=== PATIENT | female | born 1985 | race Caucasian/White ===

== ENCOUNTER 2018-09-11 06:00 | Inpatient (IN) | payer BC ==
[2018-09-11] MEDS ORDERED: CARBOPROST TROMETHAMINE 250 MCG/ML 1 ML AMP IM PRN (06:16)
[2018-09-11] MEDS ORDERED: LIDOCAINE 0.5% (PF) 5 MG/ML (50 ML SDV) SQ PRN (06:16)
[2018-09-11] MEDS ORDERED: TERBUTALINE 1 MG/ML VIAL SQ PRN (06:16)
[2018-09-11] MEDS ORDERED: OXYTOCIN 10 UNIT/ML 1 ML VIAL IM PRN (06:16)
[2018-09-11] MEDS ORDERED: METHYLERGONOVINE 0.2 MG/ML 1 ML AMP IM PRN (06:16)
[2018-09-11 06:23] VITALS: BMI 36.8
[2018-09-11] MEDS ORDERED: OXYTOCIN 20 UNITS/1000 ML NS 1,000 ML IV SCH (06:30)
[2018-09-11] MEDS ORDERED: LACTATED RINGERS 1,000 ML IV SCH (06:30)
[2018-09-11 06:37] LABS: Basophils % (A) 0 %; Eosinophils # (A) 0.2 k/uL (0-0.7); Eosinophils % (A) 2 %; HCT 41.5 % (34.0-46.0); HGB 13.9 gm/dL (11.4-16.0); Lymphocytes # (A) 2.9 k/uL (1.0-4.8); Lymphocytes % (A) 24 %; MCH 29.5 pg (25.0-35.0); MCHC 33.4 g/dL (31.0-37.0); MCV 88.4 fL (80.0-100.0); Mean Platelet Volume 7.1; Monocytes # (A) 0.7 k/uL (0-1.0); Monocytes % (A) 6 %; Neutrophils # (A) 8.3 k/uL (1.3-7.7); Neutrophils % (A) 67 %; Platelet Count 225 k/uL (150-450); RBC 4.69 m/uL (3.80-5.40); RDW 13.3 % (11.5-15.5); WBC 12.4 k/uL (3.8-10.6)
[2018-09-11] MEDS ORDERED: BENZOCAINE/MENTHOL SPRAY 1 GM/SPRAY AEROSOL TOPICAL PRN (10:38)
[2018-09-11] MEDS ORDERED: WITCH HAZEL 1 EACH MED..PAD TOPICAL PRN (10:38)
[2018-09-11] MEDS ORDERED: diphenhydrAMINE 50 MG CAP PO PRN (11:03)
[2018-09-11] MEDS ORDERED: LANOLIN CREAM 5 GM TUBE TOPICAL PRN (11:03)
[2018-09-11] MEDS ORDERED: diphenhydrAMINE 25 MG CAP PO PRN (11:03)
[2018-09-11] MEDS ORDERED: ZOLPIDEM 5 MG TAB PO PRN (11:03)
[2018-09-11] MEDS ORDERED: ACETAMINOPHEN TAB 325 MG TAB PO PRN (11:03)
[2018-09-11] MEDS ORDERED: SIMETHICONE 80 MG CHEWABLE PO PRN (11:03)
--- NOTE | 2018-09-11 12:51 | P.HPOB ---
History of Present Illness H&P Date: 09/11/18 Chief Complaint: Induction of Labor 33 year old presents at 39 weeks 2 days for induction of labor. Her cervix is 7/90/0. She is carmen irregularly. heart tones were 130-135 with moderate variability and reactive. Review of Systems All systems: negative Constitutional: Denies chills, Denies fever Eyes: denies blurred vision, denies pain Ears, nose, mouth and throat: Denies headache, Denies sore throat Cardiovascular: Denies chest pain, Denies shortness of breath Respiratory: Denies cough Gastrointestinal: Denies abdominal pain, Denies diarrhea, Denies nausea, Denies vomiting Genitourinary: Denies dysuria, Denies hematuria Musculoskeletal: Denies myalgias Integumentary: Denies pruritus, Denies rash Neurological: Denies numbness, Denies weakness Psychiatric: Denies anxiety, Denies depression Endocrine: Denies fatigue, Denies weight change Past Medical History Past Medical History: No Reported History Additional Past Medical History / Comment(s): OB history: First was a vaginal delivery, she's had one miscarriage and this is her third . Her blood type is B+, and is negative, rubella immune, hep is B-, GBS negative. History of Any Multi-Drug Resistant Organisms: None Reported Additional Past Surgical History / Comment(s): [place] Tooth Extraction Past Anesthesia/Blood Transfusion Reactions: No Reported Reaction Past Psychological History: No Psychological Hx Reported Smoking Status: Never smoker Past Alcohol Use History: None Reported Past Drug Use History: None Reported - Past Family History Mother Family Medical History: Thyroid Disorder Sister(s) Family Medical History: Asthma Medications and Allergies Home Medications Medication Instructions Recorded Confirmed Type Pnv 11/Iron Fum/Folic Acid/Om3 1 each PO DAILY 09/11/18 09/11/18 History [Virt-Raj Dha Softgel] Allergies Allergy/AdvReac Type Severity Reaction Status Date / Time Penicillins Allergy Rash/Hives Verified 09/11/18 06:16 Exam Osteopathic Statement: *. No significant issues noted on an osteopathic structural exam other than those noted in the History and Physical/Consult. Vital Signs Temp Pulse Pulse Resp BP 09/11/18 12:25 78 16 132/79 09/11/18 11:55 69 16 139/83 09/11/18 11:25 75 16 152/98 09/11/18 11:10 75 16 145/92 09/11/18 10:55 70 16 127/82 09/11/18 10:40 75 16 128/84 09/11/18 10:25 97.2 F L 78 16 143/88 09/11/18 06:18 97.4 F L 85 16 137/89 Intake and Output 09/10/18 09/11/18 09/11/18 22:59 06:59 14:59 Other: Weight 116.573 kg Heart: Regular rate and rhythm Lungs: Clear to auscultation bilaterally Abdomen: Soft, nontender Extremities: Negative Homans sign Results Result Diagrams: 09/11/18 06:26 Abnormal Lab Results - Last 24 Hours (Table) 09/11/18 Range/Units 06:26 WBC 12.4 H (3.8-10.6) k/uL Neutrophils # 8.3 H (1.3-7.7) k/uL Assessment and Plan (1) Normal labor Current Visit: Yes Status: Acute Code(s): O80 - ENCOUNTER FOR FULL-TERM UNCOMPLICATED DELIVERY; Z37.9 - OUTCOME OF DELIVERY, UNSPECIFIED SNOMED Code(s ): 07656220 Plan: 1. Admit to family place 2. Induction of labor amniotomy and Pitocin 3. Anticipate normal vaginal delivery
--- NOTE | 2018-09-11 12:53 | P.PROBDLV ---
Vaginal Delivery Note - . Vaginal Delivery Note: 33-year-old presents at 39 weeks and 2 days for induction of labor. Her cervix was 7 cm dilated, 90% effaced, 0 station. She is carmen irregularly. heart tones 130-145 with moderate variability and reactive. Pitocin was started. Amniotomy was performed at 8:18 AM, clear fluid noted. Her cervix was completely dilated 954 a.m. She pushed, and delivered a viable male infant over midline episiotomy under epidural anesthesia. The heart tones had gone down to 80s to 90s at this point and episiotomy was found to be necessary. Head delivered OA, nuchal cord 1 easily reduced, the more anterior shoulder was the right shoulder delivered with gentle downward guidance, followed by posterior shoulder and rest of body. Nose and mouth bulb suctioned , cord clamped and cut, infant placed on mother's abdomen. Apgars 8, 9, weight 8 lbs. 11 oz. Placenta delivered spontaneously, intact with three-vessel cord at 10:16 AM. Vagina, cervix, and perineum were inspected. Second-degree midline episiotomy was repaired with 2-0 and 3-0 Vicryl. Estimated blood loss 200 mL. Mother and baby in stable condition.
[2018-09-11] MEDS: IBUPROFEN 600 MG TAB PO PRN (15:04)
[2018-09-11] MEDS: SENNOSIDES-DOCUSATE SODIUM 1 EACH TAB PO SCH (19:52)
[2018-09-12] MEDS: IBUPROFEN 600 MG TAB PO PRN ×2 (00:03→08:51)
--- NOTE | 2018-09-12 08:25 | P.DS ---
Providers Date of admission: 09/11/18 06:00 Expected date of discharge: 09/12/18 Attending physician: Yarely Esquivel Primary care physician: Stated None - Discharge Diagnosis(es) (1) Normal labor Current Visit: Yes Status: Resolved (2) Normal vaginal delivery Current Visit: Yes Status: Acute Hospital Course: Patient presented for induction of labor. She underwent a normal vaginal delivery and had an uncomplicated pp course. She will be discharged home PPD #1 in stable condition to follow up with me in 6 weeks. Plan - Discharge Summary New Discharge Prescriptions: New Ibuprofen [Motrin] 600 mg PO Q6HR PRN #30 tab PRN Reason: Mild Pain Or Fever >= 100.5 No Action Pnv 11/Iron Fum/Folic Acid/Om3 [Virt-Raj Dha Softgel] 1 each PO DAILY Discharge Medication List Pnv 11/Iron Fum/Folic Acid/Om3 [Virt-Raj Dha Softgel] 1 each PO DAILY 09/11/18 [History] Ibuprofen [Motrin] 600 mg PO Q6HR PRN #30 tab 09/12/18 [Rx] Follow up Appointment(s)/Referral(s): Yarely Esquivel DO [Doctor of Osteopathic Medicine] - 6 Weeks Discharge Disposition: HOME SELF-CARE
[2018-09-12] MEDS: SENNOSIDES-DOCUSATE SODIUM 1 EACH TAB PO SCH (08:50)
[2018-09-12 09:03] VITALS: BP 134/84; PULSE 83; RESP 20; TEMP 98.4
== END 2018-09-12 14:50 | disposition home or self-care (01) | DRG 807 ==
LOC: 4FBP 06:00
PROVIDERS: ADMIT Obstetrics & Gynecology; ATTEND Obstetrics & Gynecology
PROC: 10E0XZZ Delivery of Products of Conception, External Approach (ICD-10-PCS; principal; 2018-09-11)
PROC: 0W8NXZZ Division of Female Perineum, External Approach (ICD-10-PCS; 2018-09-11)
PROC: 10907ZC Drainage of Amniotic Fluid, Therapeutic from Products of Conception, Via Natural or Artificial Opening (ICD-10-PCS; 2018-09-11)
PROC: 3E033VJ Introduction of Other Hormone into Peripheral Vein, Percutaneous Approach (ICD-10-PCS; 2018-09-11)
DX: O69.81X0 Labor and delivery complicated by cord around neck, without compression, not applicable or unspecified (principal); Z37.0 Single live birth; Z3A.39 39 weeks gestation of pregnancy; Z79.899 Other long term (current) drug therapy; Z88.0 Allergy status to penicillin; Z82.5 Family history of asthma and other chronic lower respiratory diseases; Z83.49 Family history of other endocrine, nutritional and metabolic diseases
CPT/HCPCS: 85025; 86850; 86900; 86901

== ENCOUNTER → 2021-01-07 | Outpatient (CLI) | payer BC ==
--- NOTE | 2021-01-07 10:57 | US ---
EXAMINATION TYPE: US abdomen complete DATE OF EXAM: 01/07/2021 COMPARISON: NONE CLINICAL HISTORY: 35-year-old female R10.13 EPIGASTRIC PAIN. TECHNIQUE: Multiple sonographic images of the abdomen are obtained. FINDINGS: EXAM MEASUREMENTS: Liver Length: 14.4 cm Gallbladder Wall: .2 cm CBD: .2 cm Spleen: 14.2 cm Right Kidney: 11.1 x 3.1 x 5.0 cm Left Kidney: 10.5 x 4.4 x 4.0 cm Pancreas: Most of the pancreas is visualized and shows no gross abnormality. Liver: Hypoechoic area seen 2.3 x 1.7 x 2.6 cm possible focal sparing. There is background diffuse increased echogenicity of the hepatic parenchyma. Gallbladder: No stones seen Evidence for sonographic Condon's sign: No CBD: wnl Spleen: Mildly enlarged Right Kidney: wnl Left Kidney: wnl Upper IVC: wnl Abd Aorta: wnl IMPRESSION: 1. Moderate hepatic steatosis. A 2.6 cm hypoechoic area at the portahepatis likely represents focal f atty sparing. 3 month follow-up ultrasound to reassess. 2. Mild splenomegaly at 14.2 cm. 3. No gallstones or biliary ductal dilatation.
== END | disposition home or self-care (01) ==
LOC: RADUSWWP 07:39
PROVIDERS: ATTEND Family Medicine
DX: K76.0 Fatty (change of) liver, not elsewhere classified (principal); R16.1 Splenomegaly, not elsewhere classified
CPT/HCPCS: 76700

== ENCOUNTER 2021-01-26 07:40 | Day surgery (SDC) | payer BC ==
[2021-01-22 13:19] VITALS: BMI 33.1
[2021-01-26 08:09] VITALS: RESP 16; TEMP 98.2
[2021-01-26] MEDS ORDERED: LIDOCAINE 1% (10MG/ML) FOR IV START INTRADERMA ONE (08:09)
[2021-01-26] MEDS ORDERED: LACTATED RINGERS 1,000 ML IV ONE (08:11)
[2021-01-26] MEDS ORDERED: LIDOCAINE 1% INJ 10MG/ML (20 ML MDV) ONE (08:20)
[2021-01-26] MEDS ORDERED: PROPOFOL 10 MG/ML 20 ML VIAL IV ONE (08:20)
--- NOTE | 2021-01-26 08:39 | P.PCN ---
Date of Procedure: 01/26/21 Description of Procedure: BRIEF HISTORY: Patient is a 35-year-old female presenting for outpatient esophagogastroduodenoscopy for evaluation of symptoms of epigastric abdominal pain. She reports one year of symptoms of epigastric abdominal pain. Previously evaluated with ultrasound and H. pylori testing. She also reports symptoms of decreased oral intake and metallic taste in her mouth. PROCEDURE PERFORMED: Esophagogastroduodenoscopy with biopsy. PREOPERATIVE DIAGNOSIS: epigastric abdominal pain, suspected GERD. ESTIMATED BLOOD LOSS: Minimal. IV sedation per anesthesia. PROCEDURE: After informed consent was obtained, the patient was brought into the endoscopy unit. IV sedation was administered by Anesthesia under continuous monitoring. Initially the Olympus GIF-190 video endoscope was inserted into the mouth. Esophagus intubated without any difficulty. It was gradually advanced into the stomach and duodenum and carefully examined. The bulb and the second part of the duodenum appeared normal, with biopsies taken. The scope at this time was withdrawn to the stomach, adequately insufflated with air, and upon careful examination, mucosa of the antrum, body, cardia and the fundus appeared normal, except for some mild punctate erythema in the antrum and body suggestive of mild gastritis with biopsies taken. The scope was then withdrawn into the esophagus. The GE junction was located at 39 cm from the incisorsand biopsied. The esophagus appeared normal. There were no erosions or ulcerations seen and the patient tolerated the procedure well. IMPRESSION: 1. Mild gastritis. 2. Biopsies of the duodenum, antrum body and GE junction. RECOMMENDATIONS: The findings of this examination were discussed with the patient and her family. Okay to resume diet. Okay to resume medications. Await pathology from biopsies. Extensive discussion with the patient, symptoms may be related to uncontrolled reflux and recommendation is for daily OTC omeprazole 20 mg for 6-8 weeks for empiric treatment.
[2021-01-26 09:07] VITALS: BP 124/79; PULSE 69
== END 2021-01-26 09:13 | disposition home or self-care (01) ==
LOC: ORWHC2ENDO 07:40
PROVIDERS: ATTEND Internal Medicine
DX: K29.50 Unspecified chronic gastritis without bleeding (principal); K21.9 Gastro-esophageal reflux disease without esophagitis; J45.990 Exercise induced bronchospasm; Z98.890 Other specified postprocedural states; Z88.0 Allergy status to penicillin
CPT/HCPCS: 81025; 43239; J2001; J2704; 88305; 88342

== ENCOUNTER → 2021-05-15 | Outpatient (CLI) | payer BC ==
--- NOTE | 2021-05-15 09:31 | US ---
EXAMINATION TYPE: US abdomen limited DATE OF EXAM: 05/15/2021 COMPARISON: NONE CLINICAL HISTORY: R932 Abnormal findings on dx imaging of liver. Intermittent abdomen pain x couple m onths EXAM MEASUREMENTS: Liver Length: 14.3 cm Gallbladder Wall: 0.2 cm CBD: 0.7 cm Right Kidney: 10.8 x 4.3 x 5.6 cm Pancreas: wnl Liver: increased echogenicity, 2.0 x 1.3 x 2.5cm hypoechoic area, possible focal sparing, unchanged Gallbladder: wnl Evidence for sonographic Condon's sign: no CBD: dilated Right Kidney: fullness of renal pelvis IMPRESSION: The liver is slightly echogenic with a hypoechoic portion in the gallbladder fossa. This may represen t hepatic steatosis with focal fatty sparing versus hepatic lesion. Please correlate clinically. MRI abdomen could be obtained if clinically warranted.
== END | disposition home or self-care (01) ==
LOC: RADUSWWP 07:58
PROVIDERS: ATTEND Family Medicine
DX: R93.2 Abnormal findings on diagnostic imaging of liver and biliary tract (principal); R10.9 Unspecified abdominal pain
CPT/HCPCS: 76705

== ENCOUNTER → 2021-12-22 | Outpatient (CLI) | payer BC ==
--- NOTE | 2021-12-23 17:17 | US ---
EXAMINATION TYPE: US pelvic complete DATE OF EXAM: 12/22/2021 COMPARISON: NONE CLINICAL HISTORY: R10.2 Pelvic/perineal pain. pelvic pain. irregular menses TECHNIQUE: Transabdominal (TA). Date of LMP: 12/13/21 EXAM MEASUREMENTS: Uterus: 8.1 x 3.7 x 4.7 cm Endometrial Stripe: 0.4 cm Right Ovary: 3.5 x 2.0 x 2.0 cm Left Ovary: 2.5 x 1.6 x 1.8 cm 1. Uterus: Anteverted calcification = 0.4cm this is echogenic and may have some posterior shadowin g. 2. Endometrium: wnl 3. Right Ovary: follicles noted 4. Left Ovary: follicles noted 5. Bilateral Adnexa: wnl 6. Posterior cul-de-sac: wnl IMPRESSION: 1. Echogenic foci within the endometrial canal may be calcification. Follow-up is recommended.
== END | disposition home or self-care (01) ==
LOC: RADUSWWP 15:35
PROVIDERS: ATTEND Family Medicine
DX: R10.2 Pelvic and perineal pain (principal)
CPT/HCPCS: 76856

== ENCOUNTER → 2023-12-26 | Outpatient (CLI) | payer BC ==
--- NOTE | 2023-12-26 11:33 | US ---
EXAMINATION TYPE: US venous doppler duplex LE RT DATE OF EXAM: 12/26/2023 10:59 AM COMPARISON: NONE CLINICAL INDICATION: Female, 38 years old with history of R22.41 LOCALIZED SWELLING, MASS AND LUMP, R IGHT LO; Pt states swelling to right foot and ankle SIDE PERFORMED: Right TECHNIQUE: The lower extremity deep venous system is examined utilizing real time linear array sonog eris with graded compression, doppler sonography and color-flow sonography. VESSELS IMAGED: Common Femoral Vein Deep Femoral Vein Greater Saphenous Vein * Femoral Vein Popliteal Vein Small Saphenous Vein * Proximal Calf Veins Posterior tibial veins (* superficial vessels) Right Leg: Negative for DVT Results called to Leida at Dr's office at time of exam IMPRESSION: No evidence for DVT within the right lower extremity.
== END | disposition home or self-care (01) ==
LOC: RADUSWWP 10:36
PROVIDERS: ATTEND Family Medicine
DX: M79.661 Pain in right lower leg (principal); R22.41 Localized swelling, mass and lump, right lower limb

== ENCOUNTER → 2024-02-27 | Outpatient (CLI) | payer BC ==
--- NOTE | 2024-02-27 11:48 | XR ---
EXAMINATION TYPE: XR chest 2V DATE OF EXAM: 02/27/2024 COMPARISON: None INDICATION: Chest tightness cough TECHNIQUE: Frontal and lateral views of the chest are obtained. FINDINGS: The heart size is normal. The pulmonary vasculature is normal. There is a consolidation in the lower lung field. This appears to be anterior to the major fissure on the lateral projection. No silhouetting the heart border is evident. IMPRESSION: 1. Right lung field infiltrate. Correlate for pneumonia. Follow-up can be performed.
== END | disposition home or self-care (01) ==
LOC: RADXRYALE 11:13
PROVIDERS: ATTEND Physician Assistant Medical
DX: R91.8 Other nonspecific abnormal finding of lung field (principal); J18.0 Bronchopneumonia, unspecified organism; R07.89 Other chest pain; R05.9 Cough, unspecified
CPT/HCPCS: 71046

== ENCOUNTER → 2024-08-07 | Outpatient (CLI) | payer BC ==
--- NOTE | 2024-08-07 11:43 | XR ---
EXAMINATION TYPE: XR abdomen 2V DATE OF EXAM: 08/07/2024 COMPARISON: NONE HISTORY: Abdominal pain TECHNIQUE: Single upright image of the abdomen and pelvis is obtained FINDINGS: Small bowel demonstrates no evidence for dilatation or air fluid levels. Gas and fecal material is seen in non-distended colon. No convincing evidence for pneumoperitoneum. No unusual calcifications. IUD is present within the pelvis. The lung bases are clear. The osseous structures are intact. IMPRESSION: Overall nonobstructive bowel gas pattern. [facility], , 08/07/2024 11:41 AM
== END | disposition home or self-care (01) ==
LOC: RADXRYALE 11:23
PROVIDERS: ATTEND Physician Assistant Medical
DX: R10.9 Unspecified abdominal pain (principal)
CPT/HCPCS: 74019

== ENCOUNTER → 2024-08-15 | Outpatient (CLI) | payer BC ==
--- NOTE | 2024-08-15 16:07 | CT ---
EXAMINATION TYPE: CT abdomen pelvis w con CT DLP: 1441 mGycm, Automated exposure control for dose reduction was used. DATE OF EXAM: 08/15/2024 2:50 PM COMPARISON: Abdominal radiograph 08/07/2024, abdominal ultrasound 05/15/2021, pelvic ultrasound 12/22/19. CLINICAL INDICATION:Female, 39 years old with history of R10.84 GENERALIZED ABDOMINAL PAIN; Nausea, b loating and tenderness TECHNIQUE: Standard CT of the abdomen and pelvis following the administration of 100 cc of Isovue 3 00 IV contrast material and oral contrast. Coronal and sagittal reformats were performed. FINDINGS: LOWER CHEST: Unremarkable ABDOMEN LIVER: Unremarkable GALLBLADDER AND BILE DUCTS: Contracted gallbladder. No biliary duct dilatation. PANCREAS: Unremarkable. SPLEEN: There are hypodense focus within the periphery which is too small to characterize but likely represents a cyst or hemangioma. ADRENAL GLANDS: Unremarkable. KIDNEYS AND URETERS: No evidence of hydronephrosis or renal calculus. The kidneys enhance symmetrical ly. Retroaortic left renal vein. Contrast is demonstrated within both collecting systems on the delay ed phase. PELVIS BLADDER: Unremarkable REPRODUCTIVE: IUD is present within the uterus ABDOMEN & PELVIS STOMACH AND BOWEL: Stomach and duodenum are unremarkable. No focal bowel wall thickening or surroundi ng inflammatory changes. Enteric contrast reaches the mid small bowel. Distal small bowel feces sign. The appendix is within normal limits. No diverticulosis is identified. No evidence of bowel obstruct ion. PERITONEUM: No evidence of pneumoperitoneum or free fluid. VASCULATURE: No evidence of aortic aneurysm. MUSCULOSKELETAL: No acute osseous abnormalities LYMPH NODES: No evidence for lymphadenopathy. SOFT TISSUE/ABDOMINAL WALL: Unremarkable IMPRESSION: 1. No acute abdominal/pelvic process. 2. Nonobstructive bowel with small bowel feces sign identified. Suggested delayed bowel transit. [facility], , 08/15/2024 4:04 PM
== END ==
LOC: RADCTMAIN 12:14
PROVIDERS: ATTEND Family Medicine
DX: R10.84 Generalized abdominal pain
CPT/HCPCS: 74177